=== PATIENT | female | born 1985 | race Caucasian/White ===

== ENCOUNTER → 2018-04-04 08:26 | Outpatient (POV) | payer OTHER, SELFPAY | PROVIDERS: Visit Provider Dermatology | DX: Z00.00 Encounter for general adult medical examination without abnormal findings (principal) ==

== ENCOUNTER → 2018-11-06 15:49 | Outpatient (CLI) | payer OTHER, SELFPAY ==
--- NOTE | 2018-11-06 15:54 | XR_ITS ---
XR foot RT min 3V HISTORY: ITS.REASON: RT FOOT PAIN ORDERING PHYSICIAN: Justice Rapp MD PATIENT AGE: 33 years COMPARISON: None FINDINGS: No fracture or dislocation. No lytic or blastic change. There is normal mineralization.. The joint spaces are well-preserved. No significant degenerative/arthritic changes. No erosive changes evident. The plantar arch is normal. There are no calcaneal spurs. IMPRESSION: Negative, no acute finding
== END ==
PROVIDERS: PCP Family Medicine; Visit Provider Family Medicine
DX: M79.671 Pain in right foot (principal)
CPT/HCPCS: 73630

== ENCOUNTER → 2023-01-04 10:22 | Outpatient (CLI) | payer BC, SELFPAY ==
--- NOTE | 2023-01-04 10:25 | XR_ITS ---
FINAL REPORT CLINICAL HISTORY: Foot pain FINDINGS: AP, oblique and lateral views of the right foot were obtained. There is no prior exam for comparison. There is no acute fracture or dislocation. The joint spaces are preserved. Soft tissues are normal. IMPRESSION: No acute osseous abnormality of the right foot. Reviewed, Interpreted and Dictated by Ami Goodman MD Transcribed by Andrey Gottlieb Authenticated and [facility]
== END ==
PROVIDERS: PCP Family Medicine; Visit Provider Nurse Practitioner Family
DX: M79.671 Pain in right foot (principal)
CPT/HCPCS: 73630

== ENCOUNTER 2023-12-29 09:43 | Outpatient (CLI) | payer OTHER, SELFPAY ==
--- NOTE | 2023-12-29 09:56 | XR_ITS ---
FINAL REPORT CLINICAL HISTORY: concern for fracture , coccyx only per doctor FINDINGS: Sacrum/coccyx Two views were obtained. There is no acute fracture or dislocation. The joint spaces appear normal. No soft tissue abnormality is identified. IUD is seen in the mid pelvis. IMPRESSION: No acute process. Reviewed, Interpreted and Dictated by Jac Joens III, MD Transcribed by Odalis Boucher Authenticated and . [facility]
[2023-12-29 10:13] LABS: Basophils % 0.6 % (0.1-2.0); Eosinophils # 0.1 K/mm3 (0.0-0.4); Eosinophils % 0.8 % (0.1-12.0); Hematocrit 40.6 % (37.0-47.0); Hemoglobin 13.4 g/dL (12.2-16.2); Lymphocytes # 1.6 K/mm3 (0.7-4.5); Lymphocytes % 23.1 % (10-50); Mean Corpuscular Hemoglobin 32.2 pg (27.0-31.2); Mean Corpuscular Volume 97.6 fl (81-99); Mean Platelet Volume 9.5 fl (7.4-10.4); Monocytes # 0.5 K/mm3 (0.1-1.0); Neutrophils # 4.7 K/mm3 (1.8-7.8); Neutrophils % 68.5 % (37.0-80.0); Platelet Count 236 K/mm3 (142-424); Red Blood Count 4.16 M/mm3 (4.20-5.40); Red Cell Distribution Width 14.1 % (11.5-17.5); White Blood Count 6.8 K/mm3 (4.8-10.8)
[2023-12-29 10:38] LABS: Alanine Aminotransferase 16 U/L (12-78); Albumin/Globulin Ratio 1.7 (1.1-1.8); Alkaline Phosphatase 66 U/L (38-126); Anion Gap 6.8 mEq/L (5-15); Aspartate Amino Transferase 23 U/L (14-36); Bilirubin,Total 0.5 mg/dl (0.2-1.3); Blood Urea Nitrogen 13 mg/dl (7-17); Calcium 9.3 mg/dl (8.4-10.2); Carbon Dioxide 30 mmol/L (22.0-30.0); Chloride 104 mmol/L (98-107); Chol/HDL Ratio 2.7 (1-3.5); Cholesterol 182 mg/dl (140-200); Estimated Glomerular Filt Rate 93 ml/min (>60); GFR (African American) 113 ML/MIN (>60); Globulin 2.3 g/dL (1.3-3.2); Glucose 89 mg/dl (74-100); HDL Cholesterol 67 mg/dl (40-60); Potassium 3.8 mmoL/L (3.5-5.1); Sodium 137 mmol/L (136-145); Total Protein,Serum 6.3 g/dl (6.3-8.2); Triglycerides 64 mg/dl (30-150); VLDL Cholesterol 13 mg/dL (0-40)
[2023-12-29 10:49] LABS: Direct LDL Cholesterol 86.11 mg/dL (100-129)
[2023-12-29 11:09] LABS: Thyroid Stimulating Hormone 1.47 uIU/mL (0.465-4.68)
== END 2023-12-29 23:59 | disposition home or self-care (01) ==
LOC: LAB 09:45
PROVIDERS: PCP Family Medicine; Visit Provider Obstetrics & Gynecology
DX: F43.10 Post-traumatic stress disorder, unspecified (principal); M53.3 Sacrococcygeal disorders, not elsewhere classified
CPT/HCPCS: 36415; 72220; 80050; 80053; 80061; 84443; 85025

== ENCOUNTER 2024-01-11 15:02 | Outpatient (CLI) | payer OTHER, SELFPAY ==
--- NOTE | 2024-01-11 15:08 | US_ITS ---
FINAL REPORT CLINICAL HISTORY: LEFT AXILLA/LYMPHADENOPATHY COMPARISON: None FINDINGS: Limited sonographic images were obtained of the left axilla at the region of palpable abnormality. There are scattered small lymph nodes identified, all normal size by imaging criteria. No mass or fluid collection identified. IMPRESSION: Normal-appearing lymph nodes. Reviewed, Interpreted and Dictated by Scar Hogan MD Transcribed by Khloe Galindo Authenticated and [facility]
== END 2024-01-11 23:59 | disposition home or self-care (01) ==
LOC: RAD 15:03
PROVIDERS: PCP Family Medicine; Visit Provider Physician Assistant
DX: R59.0 Localized enlarged lymph nodes (principal)
CPT/HCPCS: 76882

== ENCOUNTER 2024-04-02 10:33 | Outpatient (CLI) | payer OTHER, SELFPAY | END 2024-04-02 23:59 | disposition home or self-care (01) | LOC: LAB.DROPOF 04-03 10:33 | PROVIDERS: PCP Student in an Organized Health Care Education/Training Program; Visit Provider Student in an Organized Health Care Education/Training Program | DX: J32.9 Chronic sinusitis, unspecified (principal) | CPT/HCPCS: 87635 ==

== ENCOUNTER 2024-12-17 08:38 | Outpatient (CLI) | payer OTHER, SELFPAY ==
--- OUTSIDE RECORDS SUMMARY | 2024-01-06 09:30 | XMS_ITS ---
Author Organization [facility] Address [address] [facility] [address] [place] [id number] Care Team Providers Care Solar Project Engineer Name Role Phone uSzan Stallings Primary Care Provider [phone] Min Marcus Unavailable [phone] Ayleen Martinez Unavailable [phone] Allergies Allergen (clinical drug ingredient) Drug/Non Drug [...] [address] [place] [id number] 01/06/2024 Ayleen Martinez Poison galindo L23.7 and [...] test results, Reason: Progress Notes * GENOVEVA MCFARALNEB:[birth year] (39 yo F)Acc No.[id number]:01/06/2024 Progress Notes Patient: NABEEL JORDAN Provider: GURWINDER Tipton :1985 A ge:38 Y S ex:Female Date:01/06/2024 Address:[address] [place] [address] [address] [place] Pcp:Suzan Stallings Subjective: * [...] * Images: Billing Information: * Visit Code: 21097 Office Visit, Est Pt., Level 3. 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
--- NOTE | 2024-12-17 08:30 | MM_ITS ---
PROCEDURE INFORMATION: Exam: MG Bilateral Screening 3D Mammography Exam date and time: 12/17/2024 8:44 AM Age: 39 years old Clinical indication: Screening examination. TECHNIQUE: Imaging protocol: Bilateral Screening tomosynthesis and 2D mammography including computer-aided detection (CAD) when performed. COMPARISON: No relevant prior studies available. FINDINGS: MAMMOGRAPHY: Breast composition: There are scattered areas of fibroglandular density. Mass: None. Architectural distortion: None. Calcifications: No suspicious calcifications. Asymmetric density: None. Skin thickening: None. Axillary adenopathy: None. IMPRESSION: No mammographic evidence of malignancy. Annual screening is recommended unless otherwise clinically indicated. ASSESSMENT: BI-RADS Category 1: Negative.
--- OUTSIDE RECORDS SUMMARY | 2024-12-17 08:40 | XMS_ITS | Patient Health Record ---
Author Organization [facility] Address [address] [facility] [address] [place] [id number] Care Team Providers Care Equipment Service Lead Name Role Phone Suzan Stallings Primary Care Provider [phone] Min Marcus Unavailable [phone] Ayleen Martinez Unavailable [phone] Allergies Allergen (clinical drug ingredient) Drug/Non Drug Allergy documented on EMR Reaction Allergy Type Onset Date Status amoxicillin Amoxicillin Unknown Drug Allergy Act tien Substance with penicillin structure and antibacterial mechanism of action (substance) Penicillins Unknown Drug Allergy Active Results Component Value Reference Range Notes Ultrasound : Axilla, left Reviewed date:01/13/2024 02:09:10 PM Interpretation:Normal Performing Lab: Notes/Report: Normal Reason For Referral No Information Medications Medication SIG (Take, Route, Frequency, Duration) Notes Start Date End Date Status SUMAtriptan Succinate 25 MG 1 tab(s) orally once Acti ve Triamcinolone Acetonide 0.5 % 1 application Externally Twice a day 01/06/2024 Active DULoxetine HCl 60 MG 1 cap(s) orally once a day; Duration: 15 day(s) Active Medrol 4 MG as directed orally daily; Duration: 6 days 01/18/2022 Not-Taking Saxenda 18 MG/3ML as directed subcutaneously once a day 03/03/2020 Not-Taking Zepbound 5 MG/0.5ML 0.5 mL Subcutaneous; Duration: 30 day(s) Active Valtrex 500 MG 1 tab(s) orally 2 tabs initially, then 1 tab QD x 5 11/24/2020 Active Triamcinolone Acetonide 0.1 % 1 marlo applied topically 3 times a day 09/30/2021 Not-Taking hydrOXYzine HCl 25 MG 1 tab(s) orally 4 times a day, prn 09/30/2021 Not-Taking Acyclovir 5 % 1 marlo applied topically every 3 hours; Duration: 7 day(s) 01/18/2022 Not-Taking VALTREX 1000 MG 1 P.O. BID *Please review for potential replacement for e-prescription and drug interaction check* 01/18/2022 Active Immunizations Vaccine Route Administration Date Status Comme nts COVID 19 Cecilia Unknown 08/27/2020 Administered Fluzone Quad (6months&older) IM Intramuscular 03/29/2015 Administered Fluzone Quad (6months&older) IM Intramuscular 05/08/2016 Administered Fluzone Quad (6months&older) IM Intramuscular 03/22/2017 Administered Fluzone Quad (6months&older) IM Intramuscular 04/09/2019 Administered Fluzone Quad (6months&older) IM Intramuscular 04/18/2020 Administered H1N1 flu vaccine IM Intramuscular 05/12/2009 Administered Tetanus Tdap-Adacel (over 7yrs) IM Intramuscular 11/24/2020 Administered xFlu shot- 6months-36 months of gun-FQTB-DOAE-trivalent IM Intramuscular 05/03/2014 Administered xFlu shot- 6months-36 months of phv-LMZY-EGMQ-trivalent Unknown 04/13/2018 Administered xFlu shot-36 months and older IM Intramuscular 05/26/2007 Administered xFluzone (6mos and older)-trivalent IM Intramuscular 04/30/2013 Administered xFluzone Intradermal (18-64yrs)-trivalent ID Intradermal 02/23/2012 Administered xGardasil IM Intramuscular 09/08/2006 Administered xGardasil IM Intramuscular 11/04/2006 Administered xGardasil IM Intramuscular 03/11/2007 Administered Problems Problem Type SNOMED Code ICD Code Onset Dates Problem Status W/U Status Risk Notes Problem Depressive disorder (14991439) Depressive disorder (F32.9) Active confirmed Problem Panic disorder (049408481) Panic attacks (F41.0) Active confirmed Problem Upper respiratory infection (45626183) Upper respiratory tract infection, unspecified type (J06.9) Active confirmed Problem Acute sinusitis (63838851) Acute sinusitis, recurrence not specified, unspecified location (J01.90) Active confirmed Problem Migraine variant with headache (disorder) (712803997) Migraine headache (G43.909) Active confirmed Problem Anxiety depression (114112258) Anxiety with depression (F41.8) Active confirmed Problem Obesity (328091461) Non morbid obesity (E66.9) Active confirmed Vital Signs Heart Rate 79 /min 01/06/2024 Blood pressure diastolic 82 mm Hg 01/06/2024 Height 71 in 01/06/2024 Blood pressure systolic 112 mm Hg 01/06/2024 Weight 203.6 lbs 01/06/2024 BMI 28.39 kg/m2 01/06/2024 Encounters Encounter Location Date Provider Diagnosis [facility] [address] [place], [place] [phone] 01/06/2024 Ayleen Crowdy Poison galindo L23.7 and Axillary lymphadenopathy R59.0 Assessments Encounter Date Diagnosis (ICD Code) Assessment Notes Treatment Notes Treatment Clinical Notes Section Notes 01/06/2024 Poison galindo (ICD-10 - L23.7) 01/06/2024 Axillary lymphadenopathy (ICD-10 - R59.0) Plan Of Treatment No Information Insurance Providers Payer Name Payer Address Payer Phone Subscriber Number Group Number Insured Name Patient Relationship to Insured Coverage Start Date Coverage End Date [employer] [facility] [id number] [place], [place] [id number] NABEEL MCFARLANE Self - patient is the insured [facility] [id number] [place], [place] [id number] NABEEL MCFARLANE Self - patient is the insured Medications Administered Medication Instructions Date of Administration Dosage Notes celestone 03/22/2017 1.5 mL Dexamethasone 02/20/2020 1 mL Medical (General) History Surgical History Surgery Date(Month/Year) cholecystectomy 06/2009 appendectomy 06/2009
--- OUTSIDE RECORDS SUMMARY | 2024-12-17 08:41 | XMS_ITS | Data Portability ---
Author Organization [facility] telehealth Address [address] [place] [address] Assessment Encounter Date Assessment Date Assessment LastModified by Organization Details LastModified Time 11/26/2022 11/26/2022 37 y/o here today for annual exam. 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 Has a mirena IUD which is not due to be changed yet but she will verify with her card and let us know. Would like labwork drawn--c/o fatigue. Would possibly be interested in testosterone/ DHEA. Happy with cymbalta 60mg that she has been on for over a year now and is requesting we refill this for her. Also requesting refill for imitrex which she likes to have on hand but very rarely needs to use. Pap today. Denies dysuria or hematochezia. RTC in one year or PRN. WDWN fe in NAD. ROS neg X HPI. Meds reviewed and accurate. [email or web address] Not available 11/26/2022 14:38:06 Plan of Treatment Reminders Order Date Submit Date Provider Last Modified By Organization Details Last Modified Time Details Appointments None recorded. Lab estradiol, serum 2022 023 [facility] ([facility]), [address] [place] [address], [address], 03:45:35 dhea-sulfat e, serum 2022 023 [facility] ([facility]), [address] [place] [address], [address], 3 03:45:37 testosteron e, total, serum 2022 023 [place] [facility] ([facility]), [address] [place] [address], [address], 3 03:45:34 lh + FSH, serum 2022 023 [place] [facility] ([facility]), [address] [place] [address], [address], 3 03:45:32 vitamin D, 25-hydroxy, total, serum 2022 023 [place] [facility] ([facility]), [address] [place] [address], [address], 3 03:45:34 TSH, serum or plasma 2022 023 [facility] ([facility]), [address] [place] [address], [address], 3 17:04:04 vitamin B12, serum 2022 023 [place] [facility] ([facility]), [address] [place] [address], [address], 3 03:45:35 pap, LB 2022 023 [email or web address] [facility] ([facility]), [address] [place] [address], [address], 3 13:35:54 pap, LB 2022 023 [email or web address] [facility] ([facility]), [address] [place], [address], 3 17:04:03 pap, LB 2022 023 [facility] ([facility]), [address] [place], [address], 3 03:44:10 fecal occult blood, stool 2022 023 HA[facility] Tijerina MD, [address], [place], [address], 3 09:27:35 CBC w/ auto diff 2022 023 [facility]), [address] [place] [address], [address], 3 03:45:33 TSH, serum or plasma 2022 023 [facility] ([facility]), [address] [place] [address], [address], 3 03:45:36 HbA1c (hemoglobin A1c), blood 2022 023 [facility] ([facility]), [address] [place] [address], [address], 3 03:45:36 CMP, serum or plasma 2022 023 [facility] ([facility]), [address] [place] [address], [address], 3 03:45:33 Referral None recorded. Procedures None recorded. Surgeries None recorded. Imaging None recorded. Medication Orders duloxetine 60 mg capsule,del ayed release 2022 023 [facility] [place], [address], 3 15:13:51 sumatriptan 100 mg tablet 2022 023 [facility] [address] [facility] [place], [address], 3 15:13:57 Patient TargetsNo targets recorded. Patient InstructionsNo instructions recorded. Reason for Referral None Reported. Results Created Date Observation Date Name Description Value Unit Range Abnormal Flag Note LastModifiedBy Organization Detail LastModifiedTime 11/27/19 23 11/29/2022 PAP TEST THIN PREP Pap test thin prep Negati ve for Intrae pithel ial Lesion or Malign vadim normal ACCES VALERI #: [id number] Sour e: Cervi michael/E ndoce rvica l LMP: unkno wn Date Taken : 11/26 Speci men Type: ThinP rep Vial Date Repor adele: 2022 Clini michael Data: Cytot ech: Colt Villanueva tt, CT( CP) Date Repor adele: 2022 Speci men Adequ acy: Satis facto ry for evalu ation Endoc ervic al/tr ansfo rmati on zone compo nent prese nt Gener al Categ oriza tion: NEGAT JANKI FOR INTRA EPITH ELIAL LESIO N OR MALIG CRISTAL Comme nts/R ecomm endat ions: Infla mmati on The follo wing tests have been order ed as reque sted and a separ ate repor t will be issue d: HPV High Risk Scree n (TMA) This speci men has been thee zed by the ThinP rep Imagi ng Syste m, an inter activ e compu ter syste m which vipin ts the lab in the scree vladislav of ThinP rep Pap Test slide s. Follo wing imagi ng, the slide was revie wed by a Cytot echno logis t and/o r Patho logis t. End of Repor t Techn ical servi juanito provi ded by Assoc i[facility] logis ts, [facility], d/b/a Sujatha charles, [address] [place] [address] Tello Her MD, Labor CFX BAT[facility]. Case revie wed and diagn osis rende red at [facility] iated Patho logis [employer] [facility], d/b/a [facility], [address] [facility] [address] [place] [address] Tello Her MD, [facility] CONFI DENTI AL Not Available [facility] ([facility]) [address] [facility], [place], [address], 11/29/2022 19:13:16 11/27/19 23 11/27/2022 HPV HIGH RISK SCREE N (TMA) HPV high risk NOT DETECT ED normal The human papil lomav irus (HPV) High Risk Scree n is an FDA-a pprov ed in-vi tro ampli fied nucle ic acid test for the quali tativ e detec tion of E6/E7 viral mRNA. [facility] melvin sharma lated with patie nt prese ntati on, histo ry, cervi michael cytol ogy and other clini michael and labor atory findi ngs. See https ://[employer]/s itflory/ anusha lt/fi les/2 018-0 3/AW- 73660 _002_ 01.pd f for alma gatesr sunil n. Test perfo rmed by [facility] iated Patho logis [employer] [facility], d/b/a Sujatha bai, [address] [facility] [address], [place] [address] , Shawna Chaudhry ra DO, Labor atorSupponor [facility] tor. Not Available [facility] ([facility]) [address] [facility] [address], [place], [address], 11/29/2022 19:13:17 11/27/19 23 11/27/2022 FSH AND LH luteinizing hormone 1.50 mIU/m L LH Refer ence Range Men: 1.7 - 8.6 Women : Folli cular phase 2.4 - 12.6 Ovula tion phase 14.0 - 95.6 Lutea l phase 1.0 - 11.4 Postm enopa use 7.7 - 58.5 Not Available [facility] ([facility]) [address] [place] [address] [address], [place], [address], 12/01/2022 03:45:32 11/27/19 23 11/27/2022 FSH AND LH FSH 2.69 mIU/m L FSH Refer ence Range Men: 1.5 - 12.4 Women : Folli cular phase 3.5 - 12.5 Ovula tion phase 4.7 - 21.5 Lutea l phase 1.7 - 7.7 Postm enopa use 25.8 - 134.8 Not Available [facility] ([facility]) [address] [place] [address] [address], [place], [address], 12/01/2022 03:45:32 11/27/19 23 11/27/2022 CBC WITH PLATE LET AND DIFFE RENTI AL WBC 6.2 K/uL 3.8-11 .5 Not Available [facility] ([facility]) [address] [place] [address] [address], [place], [address], 12/01/2022 03:45:33 11/27/19 23 11/27/2022 CBC WITH PLATE LET AND DIFFE RENTI AL red blood cell count (RBC) 4.40 M/mm3 3.60-5 .30 Not Available [facility] ([facility]) [address] [place] [address] [address], [place], [address], 12/01/2022 03:45:33 11/27/19 23 11/27/2022 CBC WITH PLATE LET AND DIFFE RENTI AL hemoglobin (HGB) 13.7 gm/dL 11.5-1 5.5 Not Available [facility] ([facility]) [address] [place] [address] [address], [place], [address], 12/01/2022 03:45:33 11/27/19 23 11/27/2022 CBC WITH PLATE LET AND DIFFE RENTI AL hematocrit (HCT) 40.9 % 35.2-4 6.4 Not Available [facility] ([facility]) [address] [place] [address] [address], [place], [address], 12/01/2022 03:45:33 11/27/19 23 11/27/2022 CBC WITH PLATE LET AND DIFFE RENTI AL MCV 93.0 fL 79.0-9 9.0 Not Available [facility] ([facility]) [address] [place] [address] [address], [place], [address], 12/01/2022 03:45:33 11/27/19 23 11/27/2022 CBC WITH PLATE LET AND DIFFE RENTI AL MCH 31.1 pg 26.9-3 5.0 Not Available [facility] ([facility]) [address] [place] [address] [address], [place], [address], 12/01/2022 03:45:33 11/27/19 23 11/27/2022 CBC WITH PLATE LET AND DIFFE RENTI AL MCHC 33.5 g/dL 30.4-3 4.8 Not Available [facility] ([facility]) [address] [place] [address] [address], [place], [address], 12/01/2022 03:45:33 11/27/19 23 11/27/2022 CBC WITH PLATE LET AND DIFFE RENTI AL RDW 43.6 fL 38.6-5 3.8 Not Available [facility] ([facility]) [address] [place] [address] [address], [place], [address], 12/01/2022 03:45:33 11/27/19 23 11/27/2022 CBC WITH PLATE LET AND DIFFE RENTI AL platelet count 177 K/cum m 137-39 7 Not Available [facility] ([facility]) [address] [place] [address] [address], [place], [address], 12/01/2022 03:45:33 11/27/19 23 11/27/2022 CBC WITH PLATE LET AND DIFFE RENTI AL neutrophils automated 61.7 % 41.0-7 7.0 Not Available [facility] ([facility]) [address] [place] [address] [address], [place], [address], 12/01/2022 03:45:33 11/27/19 23 11/27/2022 CBC WITH PLATE LET AND DIFFE RENTI AL lymphocytes automated 27.6 % 14.0-4 8.0 Not Available [facility] ([facility]) [address] [place] [address] [address], [place], [address], 12/01/2022 03:45:33 11/27/19 23 11/27/2022 CBC WITH PLATE LET AND DIFFE RENTI AL monocytes automated 8.7 % 4.0-13 .0 Not Available [facility] ([facility]) [address] [place] [address] [address], [place], [address], 12/01/2022 03:45:33 11/27/19 23 11/27/2022 CBC WITH PLATE LET AND DIFFE RENTI AL eosinophils automated 1.0 % 0.0-8. 0 Not Available [facility] ([facility]) [address] [place] [address] [address], [place], [address], 12/01/2022 03:45:33 11/27/19 23 11/27/2022 CBC WITH PLATE LET AND DIFFE RENTI AL basophils automated 0.8 % 0.0-1. 5 Not Available [facility] ([facility]) [address] [place] [address] [address], [place], [address], 12/01/2022 03:45:33 11/27/19 23 11/27/2022 CBC WITH PLATE LET AND DIFFE SYDNIETI AL immature granulocyte automated 0.2 % 0.0-1. 0 Not Available [facility] ([facility]) [address] [place] [address] [address], [place], [address], 12/01/2022 03:45:33 11/27/19 23 11/27/2022 COMPR EHENS JANKI METAB OLIC PANEL (CMP) sodium 140 mEq/L 135-14 5 Not Available [facility] ([facility]) [address] [place] [address] [address], [place], [address], 12/01/2022 03:45:33 11/27/19 23 11/27/2022 COMPR EHENS JANKI METAB OLIC PANEL (CMP) potassium 4.3 mEq/L 3.5-5. 3 Not Available [facility] ([facility]) [address] [place] [address] [address], [place], [address], 12/01/2022 03:45:33 11/27/19 23 11/27/2022 COMPR EHENS JANKI METAB OLIC PANEL (CMP) chloride 104 mEq/L 97-108 Not Available [facility] ([facility]) [address] [place] [address] [address], [place], [address], 12/01/2022 03:45:33 11/27/19 23 11/27/2022 COMPR EHENS JANKI METAB OLIC PANEL (CMP) CO2 25 mEq/L 22-32 Not Available [facility] ([facility]) [address] [place] [address] [address], [place], [address], 12/01/2022 03:45:33 11/27/19 23 11/27/2022 COMPR EHENS JANKI METAB OLIC PANEL (CMP) glucose 94 mg/dL 65-99 Not Available [facility] ([facility]) [address] [place] [address] [address], [place], [address], 12/01/2022 03:45:33 11/27/19 23 11/27/2022 COMPR EHENS JANKI METAB OLIC PANEL (CMP) BUN 10 mg/dL 6-20 Not Available [facility] ([facility]) [address] [place] [address] [address], [place], [address], 12/01/2022 03:45:33 11/27/19 23 11/27/2022 COMPR EHENS JANKI METAB OLIC PANEL (CMP) creatinine 0.79 mg/dL 0.50-1 .00 Not Available [facility] ([facility]) [address] [place] [address] [address], [place], [address], 12/01/2022 03:45:33 11/27/19 23 11/27/2022 COMPR EHENS JANKI METAB OLIC PANEL (CMP) calcium 9.6 mg/dL 8.6-10 .4 Not Available [facility] ([facility]) [address] [place] [address] [address], [place], [address], 12/01/2022 03:45:33 11/27/19 23 11/27/2022 COMPR EHENS JANKI METAB OLIC PANEL (CMP) protein 6.7 g/dL 6.0-8. 3 Not Available [facility] ([facility]) [address] [place] [address] [address], [place], [address], 12/01/2022 03:45:33 11/27/19 23 11/27/2022 COMPR EHENS JANKI METAB OLIC PANEL (CMP) albumin 4.5 g/dL 3.5-5. 3 Not Available [facility] ([facility]) [address] [place] [address] [address], [place], [address], 12/01/2022 03:45:33 11/27/19 23 11/27/2022 COMPR EHENS JANKI METAB OLIC PANEL (CMP) alkaline phosphatase 80 IU/L 35-121 Not Available [facility] ([facility]) [address] [place] [address] [address], [place], [address], 12/01/2022 03:45:33 11/27/19 23 11/27/2022 COMPR EHENS JANKI METAB OLIC PANEL (CMP) ALT (SGPT) 12 IU/L <5-47 Not Available [facility] ([facility]) [address] [place] [address] [address], [place], [address], 12/01/2022 03:45:33 11/27/19 23 11/27/2022 COMPR EHENS JANKI METAB OLIC PANEL (CMP) AST (SGOT) 15 IU/L <5-40 Not Available [facility] ([facility]) [address] [place] [address] [address], [place], [address], 12/01/2022 03:45:33 11/27/19 23 11/27/2022 COMPR EHENS JANKI METAB OLIC PANEL (CMP) bilirubin, total 0.3 mg/dL <0.2-1 .2 Not Available [facility] ([facility]) [address] [place] [address] [address], [place], [address], 12/01/2022 03:45:33 11/27/19 23 11/27/2022 COMPR EHENS JANKI METAB OLIC PANEL (CMP) A/G ratio 2.0 mg/dL 1.1-2. 5 Not Available [facility] ([facility]) [address] [place] [address] [address], [place], [address], 12/01/2022 03:45:33 11/27/19 23 11/27/2022 COMPR EHENS JANKI METAB OLIC PANEL (CMP) estimated GFR (black) 110 mL/mi n/1.7 3m2 >59 Not Available [facility] ([facility]) [address] [place] [address] [address], [place], [address], 12/01/2022 03:45:33 11/27/19 23 11/27/2022 COMPR EHENS JANKI METAB OLIC PANEL (CMP) estimated GFR (other) 95 mL/mi n/1.7 3m2 >59 GFR Categ ories in Chron ic Kidne y Disea se (CKD) GFR Categ ory GFR (mL/m in/1. 73 sq. meter s) Inter preta tion G1 90 or great er Genie l or high* G2 60-89 Mild decre ase* G3a 45-59 Mild to moder ate decre ase G3b 30-44 Moder ate to sever e decre ase G4 15-29 Sever e decre ase G5 14 or less Kidne y failu re *In the absen ce of kidne y damag e, neith er GFR categ ory G1 or G2 fulfi ll the crite prudencio for CKD (Kidn ey Int Suppl 2013; 3.1-1 50) The CKD-E PI calcu latio n is inten ded for use in patie nts 18 years of age and older . Decre ased calcu latio n accur acy may be seen in patie nts takin g medic ation s that affec t renal excre tion, or in those patie nts with extre mes in muscl e mass or diet. Not Available [facility] ([facility]) [address], [place], [address], 12/01/2022 03:45:33 11/27/1911/27/2022 VITAM IN D 25-HY DROXY vitamin D 25-hydroxy 27.8 NG/mL 30.0-1 00.0 low Inter preta tion of Vitam in D 25 OH: < 20 ng/mL - Defic iency 20 - 29 ng/mL - Insuf ficie ncy 30 - 100 ng/mL - Suffi cienc y > 100 ng/mL - Super -ther apeut ic- toxic ity may occur above this level . Clini michael corre latio n requi red. Not Available [facility] ([facility]) [address], [place], [address], 12/01/2022 03:45:34 11/27/1911/27/2022 TESTO STERO NE TOTAL testosterone total SEE BELOW NG/dL 8.00-4 8.00 The resul t is outsi de of the repor table range for this metho dolog y. Pleas e refer to Testo stero ne , Total by LC/MS for the resul t. Not Available [facility] ([facility]) [address] [place] [address] [address], [place], [address], 12/01/2022 03:45:34 11/27/1912/01/2022 TESTO STERO NE, TOTAL BY LC/MS testosterone , total by lc/MS 12.3 NG/dL 5.0-55 .0 Preme nopau jodee 5-55 ng/dL (Grea ter than 18 years ) Postm enopa usal 6-30 ng/dL This test was devel oped and its perfo rmanc e lisa cteri stics were deter mined by [facility] michael labor atori es. It has not been clear ed or appro cl by the FDA. The labor atory is regul ated under CLIA as quali fied to perfo rm high- compl exity testi ng. This test is used for clini michael purpo ses and shoul d not be regar ded as inves tigat ional or for resea rch. Not Available [facility] ([facility]) [address] [place] [address] [address], [place], [address], 12/01/2022 03:45:35 11/27/19 23 11/27/2022 ESTRA DIOL estradiol 67 pg/mL Estra diol Refer ence Range Healt hy women Folli cular phase 12.4 - 233 Ovula tion phase 41.0 - 398 Lutea l phase 22.3 - 341 Postm enopa use <5 - 138 Healt hy pregn ant women 1st trime ster 154 - 3243 2nd trime ster 1561 - 53490 3rd trime ster 8525 - >3000 0 Not Available [facility] ([facility]) [address], [place], [address], 12/01/2022 03:45:35 11/27/19 23 11/27/2022 VITAM IN B12 vitamin B12 343 pg/mL 232-12 45 Not Available [facility] ([facility]) [address] [place] [address], [place], [address], 12/01/2022 03:45:35 11/27/19 23 11/27/2022 HEMOG LOBIN A1C hemoglobin A1C 5.3 % <5.7 The follo wing HbA1c range s recom wiliam d by the Ameri can Diabe mario Assoc iatio n (ADA) may be used as an aid in the diagn osis of diabe mario melli tus. HA1c Sugge sted Diagn osis >=6.5 % Diabe tic 5.7% - 6.4% Pre-D iabet ic <5.7% Non-D iabet ic Not Available [facility] ([facility]) [address], [place], [address], 12/01/2022 03:45:36 11/27/19 23 11/27/2022 HEMOG LOBIN A1C estimated average glucose 105 mg/dL Crowell ge Gluco se is calcu lated using the equat ion AG = (28.7 x HgbA1 c) - 46.7 based on the guide lines estab lishe d by the ADA. Not Available [facility] ([facility]) [address], [place], [address], 12/01/2022 03:45:36 11/27/19 23 11/27/2022 TSH TSH 1.70 mU/L 0.43-5 .25 Not Available [facility] ([facility]) [address], [place], [address], 12/01/2022 03:45:36 11/27/19 23 11/27/2022 DHEA- SULFA TE DHEA-sulfate 64 ug/dL 61-337 Not Available [facility] ([facility]) [address], [place], [address], 12/01/2022 03:45:37 Result Notes None recorded. Problems Name Problem SNOMED Code Status Onset Date Resolution Date Notes Provider Name and Address Organization Details Recorded Time Mixed anxiety and depressive disorder 360603116 Active 023 [address], [place], [address], [facility] 3 14:09:03 Migraine 26412716 Active 023 PABLO [address], [place], [address], [facility] 3 14:13:07 Fatigue 81109447 Active [address], [place], [address], [facility] 3 14:30:54 Problem Notes None recorded. Procedures Surgical History Date Name Laterality Status Provider Name and Address Organization Details Recorded Time 08/19/19 22 Date of Last Pap Smear completed [facility] 11/26/2022 13:30:53 Appendectomy completed [facility] 11/26/2022 13:34:04 tonsillectomy completed [facility] 11/26/2022 13:34:27 Cholecyst[facility] completed [facility] 11/26/2022 13:34:48 Imaging Results None recorded. Procedure Notes None recorded. Medical Equipment None Reported. Allergies Allergen ID Allergen Name Allergen Category Reaction Reaction Severity Criticality Documentation Date Start Date Code Code System Note Provider Name and Address Organization Details Recorded Time 3503 Product containin g penicilli n (product) medicatio n hives Not available Not available 11/26/2022 22975 8001 SNOMED Rosy fajardo, [facility] - [facility] 13:28:49 Medications Name Sig Start Date Stop Date Status Note LastModified by Organization Details LastModified Time triamcinolo ne acetonide 0.5 % topical cream APPLY TOPICALLY TO THE AFFECTED AREA TWICE DAILY active Not Available Not Available No t Available azithromyci n 250 mg tablet TAKE 2 TABLETS BY MOUTH ON DAY 1, AND THEN TAKE 1 TABLET BY MOUTH ONCE A DAY ON DAY 2 THROUGH DAY 5 11/26 completed Not Available Not Available Not Available fluconazole 150 mg tablet TAKE 1 TABLET BY MOUTH EVERY 3 DAYS FOR 2 DOSES. MAY REPEAT SECOND DOSE 72 HOURS AFTER FOR 1 DOSE IF SYMPTOMS PERSIST active Not Available Not Available No t Available valacyclovi r 1 gram tablet TAKE 1 TABLET BY MOUTH TWICE DAILY 11/26 completed Not Available Not Available Not Available sumatriptan 100 mg tablet TAKE 1 TABLET BY MOUTH NEEDED DIRECTED . DO NOT EXCEED 2 PER 24 HOURS active Not Available Not Available No t Available sumatriptan 25 mg tablet TAKE 1 TABLET BY MOUTH A ONE TIME DOSE 11/26 completed Not Available Not Available Not Available triamcinolo ne acetonide 0.1 % topical cream active Not Available Not Available Not Available doxycycline monohydrate 100 mg capsule active Not Available Not Available Not Available dextroamphe tamine-amph etamine ER 10 mg 24hr capsule,ext end release TAKE 1 CAPSULE BY MOUTH ONCE DAILY active Not Available Not Available No t Available mupirocin 2 % topical ointment APPLY TOPICALLY TO THE AFFECTED AREA TWICE DAILY active Not Available Not Available No t Available methylpredn isolone 4 mg tablets in a dose pack TAKE BY MOUTH DIRECTED ON INSIDE OF PACKAGE active Not Available Not Available No t Available doxycycline hyclate 100 mg tablet TAKE 1 TABLET BY MOUTH TWICE DAILY active Not Available Not Available No t Available duloxetine 60 mg capsule,del ayed release TAKE 1 CAPSULE BY MOUTH DAILY active Not Available Not Available No t Available Allergy Medication active Not Available Not Available N ot Available semaglutide (weight loss) active Not Available Not Available Not Available Vitals Date Recorded Body height Body mass index (BMI) Body weight Systolic blood pressure Diastolic blood pressure Provider Name and Address Organization Details Last Updated DateTime 11/26/2022 180.34 cm 33.8 kg/m2 889338.5 1 g 110 mm[Hg] 80 mm[Hg] [facility] 13:49:24 Social History Question Answer Notes LastModified by Organizat [employer] Details LastModified Time Tobacco Smoking Status Never Smoker [facility] 11/26/2022 13:33:49 Do You Use Protection During Sex? No [email or web address] Information not available 11/26/2022 What Is Your Relationship Status? [email or web address] Information not available 11/26/2022 Are You Sexually Active? Yes [email or web address] Information not available 11/26/2022 Sex: Female Functional Status Question Answer Note LastModified by Organizat ion Details LastModified Time Do you use any illicit or recreational drugs? No [email or web address] Information not available 11/26/2022 Do you or have you ever used any other forms of tobacco or nicotine? No [email or web address] Information not available 11/26/2022 What is your level of alcohol consumption? Occasional [email or web address] Information not available 11/26/2022 Mental Status None recorded. Family History Relationship Description Onset Age of this Age Resolved Age Notes LastModified by Organization Details LastModified Time Father No current problems or disability [email or web address] Not available 11/26 13:31:15 Mother No current problems or disability [email or web address] Not available 11/26 13:31:15 Mother Diabetes mellitus Moms whole family [email or web address] Not available 11/26/2022 13:32:10 Medical History No medical history recorded. Gynecological History Statement/Question Response Date of Last Pap Smear 08/18/2021 Age at Menarche 14 Hormone Replacement Therapy N Are your periods regular? N Obstetrics History GPAL:G 3 P 2 0 1 0 Type Value Full Term 2 Spontaneous 1 Total 3 Past Encounters Encounter ID Performer Location Encounter Start Date Encounter Closed Date Diagnosis/Indication Diagnosis SNOMED-CT Code Diagnosis ICD10 Code Diagnosis Note [id number] PABLO Coronel MD [address] [place] [address] 11/26/2022 13:33:37 11/30/2022 15:52:46 Routine gynecologic examination done 2059545904 9101 Z01.419 Mixed anxi ety and depressive disorder 277373899 F41.8 Migraine 36681192 G43.90 9 Fatigue 76749700 R53.83 Hormone re placement therapy 694031916 Z79.890 Gynecologi michael examination abnormal 2214421942 31694 Z01.411 [id number] PABLO Landry MD [address] [place] [address] 12/06/2022 11:50:43 12/06/2022 15:29:12 Health Concerns Section Related Observation LastModified by Organization Detai ls LastModified Time None Recorded Concern Status LastModified by Organization Details LastModified Time None Recorded Advance Directives Directive None Recorded Payers Insurance Date Sequence Insurance Name Policy Number Policy Vargas Covered Member ID Vargas Member ID Guarantor Name 02/13/2024 1 [employer] (POS) [id number] Juanita John [id number] OBGyn Episode No OBEpisode recorded.
== END 2024-12-17 23:59 | disposition home or self-care (01) ==
LOC: RAD 08:39
PROVIDERS: PCP Family Medicine; Visit Provider Obstetrics & Gynecology
DX: Z12.31 Encounter for screening mammogram for malignant neoplasm of breast (principal); R92.323 Mammographic fibroglandular density, bilateral breasts
CPT/HCPCS: 77063; 77067

== ENCOUNTER 2024-12-18 11:39 | Emergency (ER) | payer MEDICAID, SELFPAY ==
--- OUTSIDE RECORDS SUMMARY | 2024-01-06 09:30 | XMS_ITS ---
Author Organization [facility] Address [address] [facility] [address] [place] [id number] Care Team Providers Care Secretary Of State Name Role Phone Suzan Stallings Primary Care Provider [phone] Min Marcus Unavailable [phone] Ayleen Martinez Unavailable [phone] Allergies Allergen (clinical drug ingredient) Drug/Non Drug Allergy documented on EMR Reaction Allergy Type Onset Date Status amoxicillin Amoxicillin Unknown Drug Allergy Act tien Substance with penicillin structure and antibacterial mechanism of action (substance) Penicillins Unknown Drug Allergy Active Results Component Value Reference Range Notes Ultrasound : Axilla, left Reviewed date:01/13/2024 02:09:10 PM Interpretation:Normal Performing Lab: Notes/Report: Normal REASON FOR VISIT mammogram Medications Medication SIG (Take, Route, Frequency, Duration) Notes Start Date End Date Status Triamcinolone Acetonide 0.5 % 1 application Externally Twice a day 01/06/2024 Active DULoxetine HCl 60 MG 1 cap(s) orally once a day; Duration: 15 day(s) Active Medrol 4 MG as directed orally daily; Duration: 6 days 01/18/2022 Not-Taking Saxenda 18 MG/3ML as directed subcutaneously once a day 03/03/2020 Not-Taking SUMAtriptan Succinate 25 MG 1 tab(s) orally once Acti ve Triamcinolone Acetonide 0.1 % 1 marlo applied topically 3 times a day 09/30/2021 Not-Taking hydrOXYzine HCl 25 MG 1 tab(s) orally 4 times a day, prn 09/30/2021 Not-Taking Acyclovir 5 % 1 marlo applied topically every 3 hours; Duration: 7 day(s) 01/18/2022 Not-Taking VALTREX 1000 MG 1 P.O. BID *Please review for potential replacement for e-prescription and drug interaction check* 01/18/2022 Active Zepbound 5 MG/0.5ML 0.5 mL Subcutaneous; Duration: 30 day(s) Active Valtrex 500 MG 1 tab(s) orally 2 tabs initially, then 1 tab QD x 5 11/24/2020 Active Vital Signs Blood pressure systolic 112 mm Hg 01/06/20 24 Blood pressure diastolic 82 mm Hg 024 Heart Rate 79 /min 01/06/2024 Height 71 in 01/06/2024 Weight 203.6 lbs 01/06/2024 BMI 28.39 kg/m2 01/06/2024 Encounters Encounter Location Date Provider Diagnosis [facility] [address] [place] [id number] 01/06/2024 Ayleen Martinez Poison galindo L23.7 and Axillary lymphadenopathy R59.0 Assessments Encounter Date Diagnosis (ICD Code) Assessment Notes Treatment Notes Treatment Clinical Notes Section Notes 01/06/2024 Poison galindo (ICD-10 - L23.7) 01/06/2024 Axillary lymphadenopathy (ICD-10 - R59.0) Plan Of Treatment Medication Medication Name Sig Start Date Stop Date Notes Triamcinolone Acetonide 0.5 % 1 applicat ion Externally Twice a day 01/06/2024 Next Appt Details Follow Up: via phone to repo rt test results, Reason: Progress Notes * GENOVEVA MCFARLANEB:[birth year] (39 yo F)Acc No.[id number]:01/06/2024 Progress Notes Patient: NABEEL JORDAN Provider: GURWINDER Tipton :1985 A ge:38 Y S ex:Female Date:01/06/2024 Address:[address] [place] [address] [address] [id number] Pcp:Suzan Stallings Subjective: * Chief Complaints: * 1 . Mammogram. * HPI: G YN: 38 year old female presents with c/o breast complaints P t presents today with c/o knot in the armpit on the left side. Pt sts that she is concerned about it. Pt sts that it is a little sore but that could be because she keeps touching it. D ermatology: c/o rash P t c/o rash on her thigh that may be poison galindo but she is unsure. * ROS: C ARDIOLOGY: no D izziness. n o C hest pain. G ASTROENTEROLOGY: no N ausea. n o V omiting. n o D iarrhea.? U ROLOGY: no D ifficulty urinating. n o B lood in urine. n o F requent urination. * Medical History: M edical History Verified. * Surgical History: c holecystectomy 06/2009, appendectomy 06/2009. * Family History: F ather: alive. M other: alive. P aternal Grand Father: . P aternal Grand Mother: . M aternal Grand Father: . M aternal Grand Mother: . 1 brother(s) . 1 son(s) . . * Social History: C URRENT TOBACCO USE S moking Status: Patient does NOT smoke. C affeine: yes, frequency:DAILY. Exercise: no. Home smoke detector use: yes. Marital Status: Single. New since last visit: none. Occupation: YES. Past smoking status: no, Smoking status: Does not smoke. Occup. exposure: none. Recreational drug use: no. Alcohol: socially, Type: , Frequency: ,Years: , Determination:. Sexually active: yes. Travel ouside [place]: no. * Medications: T aking Zepbound 5 MG/0.5ML Solution Auto-injector 0.5 mL Subcutaneous , Taking Valtrex 500 MG Tablet 1 tab(s) orally 2 tabs initially, then 1 tab QD x 5 , Taking VALTREX 1000 MG 1 P.O. BID , Notes to Pharmacist: *Please review for potential replacement for e-prescription and drug interaction check*, Taking SUMAtriptan Succinate 25 MG Tablet 1 tab(s) orally once , Taking DULoxetine HCl 60 MG Capsule Delayed Release Particles 1 cap(s) orally once a day , Not-Taking Triamcinolone Acetonide 0.1 % Cream 1 marlo applied topically 3 times a day , Not-Taking hydrOXYzine HCl 25 MG Tablet 1 tab(s) orally 4 times a day, prn , Not-Taking Acyclovir 5 % Cream 1 marlo applied topically every 3 hours , Not-Taking Medrol 4 MG Tablet Therapy Pack as directed orally daily , Not-Taking Saxenda 18 MG/3ML Solution Pen-injector as directed subcutaneously once a day , Discontinued Azithromycin 250 MG Tablet 2 tablets on the first day, then 1 tablet daily for 4 days orally once a day , Medication List reviewed and reconciled with the patient * Allergies: P enicillins, Amoxicillin. Objective: * Vitals: W t:203.6, Temp:98.2, BP:112/82, HR:79, Nurse:MARITZA, Ht: 71, BMI:28.39. * Examination: G eneral Examination: General Appearance: N AD. C hest: n ormal shape and expansion. H eart: R SR. L ungs: c lear to auscultation. S kin: left axilla with a small nodular area that is tender and mobile, no erythema, no drainage, small area of linear erythematous rash on the right upper thigh, pruritic. Assessment: * Assessment: 1. P oison galindo - L23.7 (Primary) 2 . A xillary lymphadenopathy - R59.0 S pecify :left Plan: * Treatment: 2. A xillary lymphadenopathy I maging: Ultrasound : Axilla, left (Performed Date - 01/11/2024) N ormal * Follow Up: v ia phone to report test results * Images: Billing Information: * Visit Code: 65577 Office Visit, Est Pt., Level 3. 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 Pt sts that she is concerned about it. Pt sts that it is a little sore but that could be because she keeps touching it Examination Category Sub-Category Detail Notes Category Not es General Examination Heart: RSR Lungs: clear to auscultatio n General Appearance: NAD Skin: left axilla with a s mall nodular area that is tender and mobile, no erythema, no drainage, small area of linear erythematous rash on the right upper thigh, pruritic Chest: normal shape and exp ansion
[2024-12-18 11:46] VITALS: BP 112/46; PULSE 77; RESP 18; TEMP 36.5; O2SAT 100; BMI 27.2
--- OUTSIDE RECORDS SUMMARY | 2024-12-18 11:48 | XMS_ITS | Patient Health Record ---
[facility] Address [address] [facility] [address] [place] [id number] Care Team Providers Care Youth Services Specialist Name Role Phone Suzan Stallings Primary Care Provider [phone] Min Marcus Unavailable [phone] Ayleen Martinez Unavailable [phone] Allergies Allergen (clinical drug ingredient) Drug/Non Drug [...] 11/24/2020 Administered xFlu shot- 6months-36 months of ajx-WUDL-FDPA-trivalent IM Intramuscular 05/03/2014 Administered xFlu shot- 6months-36 months of xod-CMDD-ZFDH-trivalent Unknown 04/13/2018 Administered xFlu shot-36 months and older IM Intramuscular 05/26/2007 Administered xFluzone (6mos and older)-trivalent IM Intramuscular 04/30/2013 Administered xFluzone Intradermal (18-64yrs)-trivalent ID Intradermal 02/23/2012 Administered xGardasil IM Intramuscular 09/08/2006 Administered xGardasil IM Intramuscular 11/04/2006 Administered xGardasil IM Intramuscular 03/11/2007 Administered Problems Problem Type SNOMED Code ICD Code Onset Dates Problem Status W/U Status Risk Notes Problem Depressive disorder (85772656) Depressive disorder (F32.9) Active confirmed Problem Panic disorder (339258581) Panic attacks (F41.0) Active confirmed Problem Upper respiratory infection (48390134) Upper respiratory tract infection, unspecified type (J06.9) Active confirmed Problem Acute sinusitis (27849329) Acute sinusitis, recurrence not specified, unspecified location (J01.90) Active confirmed Problem Migraine variant with headache (disorder) (799252637) Migraine headache (G43.909) Active confirmed Problem Anxiety depression (803459878) Anxiety with depression (F41.8) Active confirmed Problem Obesity (079550483) Non morbid obesity (E66.9) Active confirmed Vital Signs Heart Rate 79 /min 01/06/2024 Blood pressure diastolic 82 mm Hg 01/06/2024 Height 71 in 01/06/2024 Blood pressure systolic 112 mm Hg 01/06/2024 Weight 203.6 lbs 01/06/2024 BMI 28.39 kg/m2 01/06/2024 Encounters Encounter Location Date Provider Diagnosis [facility] [address] [place], [place] [phone] 01/06/2024 Ayleen Crowdy Poison galindo L23.7 and [...] Coverage Start Date Coverage End Date AETNA [facility] [id number] [place], [place] [id number] NABEEL MCFARLANE Self - [facility] the [facility] [id number] [place], [place] [id number] NABEEL MCFARLANE Self - patient is the insured Medications Administered Medication Instructions Date of Administration Dosage Notes celestone 03/22/2017 1.5 mL Dexamethasone 02/20/2020 1 mL Medical (General) History Surgical History Surgery Date(Month/Year) cholecystectomy 06/2009 appendectomy 06/2009
--- OUTSIDE RECORDS SUMMARY | 2024-12-18 11:48 | XMS_ITS | Data Portability ---
Author Organization [facility] telehealth Address [address] [place] [address] Assessment Encounter Date Assessment Date Assessment LastModified by Organization Details LastModified Time 11/26/2022 11/26/2022 37 y/o here today for annual exam. No VIRTUAL ASSIST[employer] complaint, but murry report she did have [...] None recorded. Lab estradiol, serum 2022 023 [facility] ([facility]), [address] [place] [address], [address], 03:45:35 dhea-sulfat e, serum 2022 023 [facility] ([facility]), [address] [place] [address], [address], 3 03:45:37 testosteron e, total, serum 2022 023 [facility] [place] [facility] ([facility]), [address] [place] [address], [address], 3 03:45:34 lh + FSH, serum 2022 023 [facility] [place] [facility] ([facility]), [address] [place] [address], [address], 3 03:45:32 vitamin D, 25-hydroxy, total, serum 2022 023 [facility] [place] [facility] ([facility]), [address] [place] [address], [address], 3 03:45:34 TSH, serum or plasma 2022 023 [email or web address] [facility] ([facility]), [address] [place] [address], [address], 3 17:04:04 vitamin B12, serum 2022 023 [facility] ([facility]), [address] [place] [address], [address], 3 03:45:35 pap, LB 2022 023 [email or web address] [facility] ([facility]), [address] [place] [address], [address], 3 13:35:54 pap, LB 2022 023 [email or web address] [facility] ([facility]), [address] [place], [address], 3 17:04:03 pap, LB 2022 023 [facility] ([facility]), [address] [place], [address], 3 03:44:10 fecal occult blood, stool 2022 023 HAIDER Tijerina MD, [address], [place], [address], 3 09:27:35 CBC w/ auto diff [address] [facility] ([facility]), [address] [place] [address], [address], 3 03:45:33 TSH, serum or plasma [address] [facility] ([facility]), [address] [place] [address], [address], 3 03:45:36 HbA1c (hemoglobin A1c), blood [address] [facility] ([facility]), [address] [place] [address], [address], 3 03:45:36 CMP, serum or plasma [address] [facility] ([facility]), [address] [place] [address], [address], 3 03:45:33 Referral None recorded. Procedures None recorded. Surgeries None recorded. Imaging None recorded. Medication Orders duloxetine 60 mg capsule,del ayed release 2022 023 [facility], [address] [place], [address], 3 15:13:51 sumatriptan 100 mg tablet 2022 023 [facility], [address] [place], [address], 3 15:13:57 Patient TargetsNo targets recorded. Patient [...] ded by Assoc iated Patho logis ts, [facility], d/b/a Sujatha charles, [address] [place] [address] Tello Her MD, Labor [employer] [facility]. Case revie wed and diagn osis rende red at [facility] iated Patho logis [employer] [facility], d/b/a [facility], [address] [facility] [address] [place] [address] Tello Her MD, Labor [facility]. CONFI DENTI AL Not Available [facility] [place] [facility] ([facility]) [address] [facility] [address], [place], [address], 11/29/2022 19:13:16 11/27/19 23 11/27/2022 HPV HIGH RISK SCREE N (TMA) HPV high risk NOT DETECT ED normal The human papil lomav irus (HPV) High Risk Scree n is an FDA-a pprov ed in-vi tro ampli fied nucle ic acid test for the quali tativ e detec tion of E6/E7 viral mRNA. [facility] emlvin sharma lated with patie nt prese ntati on, histo ry, cervi michael cytol ogy and other clini michael and labor atory findi ngs. See https ://Chunyu/s itflory/ anusha lt/fi les/2 018-0 3/AW- 08621 _002_ 01.pd f for alma gatesr sunil n. Test perfo rmed by [facility] iated Patho logis [employer] [facility], d/b/a Sujatha bai, [address] [facility] [address], [place] [address] , Shawna Chaudhry ra DO, Labor [employer] [facility] tor. Not Available [facility] [place] [facility] ([facility]) [address] [facility] [address], [place], [address], 11/29/2022 19:13:17 11/27/19 23 11/27/2022 FSH AND LH luteinizing hormone 1.50 mIU/m L LH Refer ence Range Men: 1.7 - 8.6 Women : Folli cular phase 2.4 - 12.6 Ovula tion phase 14.0 - 95.6 Lutea l phase 1.0 - 11.4 Postm enopa use 7.7 - 58.5 Not Available [facility] ([facility]) [address] [place] [address] [address], [place], [address], 12/01/2022 03:45:32 11/27/19 23 11/27/2022 FSH AND LH FSH 2.69 mIU/m L FSH Refer ence Range Men: 1.5 - 12.4 Women : Folli cular phase 3.5 - 12.5 Ovula tion phase 4.7 - 21.5 Lutea l phase 1.7 - 7.7 Postm enopa use 25.8 - 134.8 Not Available [facility] ([facility]) [address] [place] [address] Dr [address], [place], [address], 12/01/2022 03:45:32 11/27/19 23 11/27/2022 CBC WITH PLATE LET AND DIFFE RENTI AL WBC 6.2 K/uL 3.8-11 .5 Not Available [facility] ([facility]) [address] [place] [address] [address], [place], [address], 12/01/2022 03:45:33 11/27/19 23 11/27/2022 CBC WITH PLATE LET AND DIFFE RENTI AL red blood cell count (RBC) 4.40 M/mm3 3.60-5 .30 Not Available [facility] ([facility]) [address] [place] [address] [address], [place], [address], 12/01/2022 03:45:33 11/27/19 23 11/27/2022 CBC WITH PLATE LET AND DIFFE RENTI AL hemoglobin (HGB) 13.7 gm/dL 11.5-1 5.5 Not Available [facility] ([facility]) [address] [place] [address] [address], [place], [address], 12/01/2022 03:45:33 11/27/19 23 11/27/2022 CBC WITH PLATE LET AND DIFFE RENTI AL hematocrit (HCT) 40.9 % 35.2-4 6.4 Not Available [facility] [place] [facility] ([facility]) [address] [place] [address] [address], [place], [address], 12/01/2022 03:45:33 11/27/19 23 11/27/2022 CBC WITH PLATE LET AND DIFFE RENTI AL MCV 93.0 fL 79.0-9 9.0 Not Available [facility] [place] [facility] ([facility]) [address] [place] [address] [address], [place], [address], 12/01/2022 03:45:33 11/27/19 23 11/27/2022 CBC WITH PLATE LET AND DIFFE RENTI AL MCH 31.1 pg 26.9-3 5.0 Not Available [facility] ([facility]) [address] [place] [address] [address], [place], [address], 12/01/2022 03:45:33 11/27/19 23 11/27/2022 CBC WITH PLATE LET AND DIFFE RENTI AL MCHC 33.5 g/dL 30.4-3 4.8 Not Available [facility] ([facility]) [address] [place] [address] [address], [place], [address], 12/01/2022 03:45:33 11/27/19 23 11/27/2022 CBC WITH PLATE LET AND DIFFE RENTI AL RDW 43.6 fL 38.6-5 3.8 Not Available [facility] ([facility]) [address] [place] [address] [address], [place], [address], 12/01/2022 03:45:33 11/27/19 23 11/27/2022 CBC WITH PLATE LET AND DIFFE RENTI AL platelet count 177 K/cum m 137-39 7 Not Available [facility] [place] [facility] ([facility]) [address] [place] [address] [address], [place], [address], 12/01/2022 03:45:33 11/27/19 23 11/27/2022 CBC WITH PLATE LET AND DIFFE RENTI AL neutrophils automated 61.7 % 41.0-7 7.0 Not Available [facility] [place] [facility] ([facility]) [address] [place] [address] [address], [place], [address], 12/01/2022 03:45:33 11/27/19 23 11/27/2022 CBC WITH PLATE LET AND DIFFE RENTI AL lymphocytes automated 27.6 % 14.0-4 8.0 Not Available [facility] ([facility]) [address] [place] [address] [address], [place], [address], 12/01/2022 03:45:33 11/27/19 23 11/27/2022 CBC WITH PLATE LET AND DIFFE RENTI AL monocytes automated 8.7 % 4.0-13 .0 Not Available [facility] [place] [facility] ([facility]) [address] [place] [address] [address], [place], [address], 12/01/2022 03:45:33 11/27/19 23 11/27/2022 CBC WITH PLATE LET AND DIFFE RENTI AL eosinophils automated 1.0 % 0.0-8. 0 Not Available [facility] ([facility]) [address] [place] [address] [address], [place], [address], 12/01/2022 03:45:33 11/27/19 23 11/27/2022 CBC WITH PLATE LET AND DIFFE RENTI AL basophils automated 0.8 % 0.0-1. 5 Not Available [facility] ([facility]) [address] [place] [address] [address], [place], [address], 12/01/2022 03:45:33 11/27/19 23 11/27/2022 CBC WITH PLATE LET AND DIFFE SYDNIETI AL immature granulocyte automated 0.2 % 0.0-1. 0 Not Available [facility] [place] [facility] ([facility]) [address] [place] [address] [address], [place], [address], 12/01/2022 03:45:33 11/27/19 23 11/27/2022 COMPR EHENS JANKI METAB OLIC PANEL (CMP) sodium 140 mEq/L 135-14 5 Not Available [facility] [place] [facility] ([facility]) [address] [place] [address] [address], [place], [address], 12/01/2022 03:45:33 11/27/19 23 11/27/2022 COMPR EHENS JANKI METAB OLIC PANEL (CMP) potassium 4.3 mEq/L 3.5-5. 3 Not Available [facility] [place] [facility] ([facility]) [address] [place] [address] [address], [place], [address], 12/01/2022 03:45:33 11/27/19 23 11/27/2022 COMPR EHENS JANKI METAB OLIC PANEL (CMP) chloride 104 mEq/L 97-108 Not Available [facility] [place] [facility] ([facility]) [address] [place] [address] [address], [place], [address], 12/01/2022 03:45:33 11/27/19 23 11/27/2022 COMPR EHENS JANKI METAB OLIC PANEL (CMP) CO2 25 mEq/L 22-32 Not Available [facility] [place] [facility] ([facility]) [address] [place] [address] [address], [place], [address], 12/01/2022 03:45:33 11/27/19 23 11/27/2022 COMPR EHENS JANKI METAB OLIC PANEL (CMP) glucose 94 mg/dL 65-99 Not Available [facility] [place] [facility] ([facility]) [address] [place] [address] [address], [place], [address], 12/01/2022 03:45:33 11/27/19 23 11/27/2022 COMPR EHENS JANKI METAB OLIC PANEL (CMP) BUN 10 mg/dL 6-20 Not Available [facility] [place] [facility] ([facility]) [address] [place] [address] [address], [place], [address], 12/01/2022 03:45:33 11/27/19 23 11/27/2022 COMPR EHENS JANKI METAB OLIC PANEL (CMP) creatinine 0.79 mg/dL 0.50-1 .00 Not Available [facility] [place] [facility] ([facility]) [address] [place] [address] [address], [place], [address], 12/01/2022 03:45:33 11/27/19 23 11/27/2022 COMPR EHENS JANKI METAB OLIC PANEL (CMP) calcium 9.6 mg/dL 8.6-10 .4 Not Available [facility] [place] [facility] ([facility]) [address] [place] [address] [address], [place], [address], 12/01/2022 03:45:33 11/27/19 23 11/27/2022 COMPR EHENS JANKI METAB OLIC PANEL (CMP) protein 6.7 g/dL 6.0-8. 3 Not Available [facility] [place] [facility] ([facility]) [address] [place] [address] [address], [place], [address], 12/01/2022 03:45:33 11/27/19 23 11/27/2022 COMPR EHENS JANKI METAB OLIC PANEL (CMP) albumin 4.5 g/dL 3.5-5. 3 Not Available [facility] [place] [facility] ([facility]) [address] [place] [address] [address], [place], [address], 12/01/2022 03:45:33 11/27/19 23 11/27/2022 COMPR EHENS JANKI METAB OLIC PANEL (CMP) alkaline phosphatase 80 IU/L 35-121 Not Available [facility] [place] [facility] ([facility]) [address] [place] [address] [address], [place], [address], 12/01/2022 03:45:33 11/27/19 23 11/27/2022 COMPR EHENS JANKI METAB OLIC PANEL (CMP) ALT (SGPT) 12 IU/L <5-47 Not Available [facility] ([facility]) [address] [place] [address] [address], [place], [address], 12/01/2022 03:45:33 11/27/19 23 11/27/2022 COMPR EHENS JANKI METAB OLIC PANEL (CMP) AST (SGOT) 15 IU/L <5-40 Not Available [facility] ([facility]) [address] [place] [address] [address], [place], [address], 12/01/2022 03:45:33 11/27/19 23 11/27/2022 COMPR EHENS JANKI METAB OLIC PANEL (CMP) bilirubin, total 0.3 mg/dL <0.2-1 .2 Not Available [facility] [place] [facility] ([facility]) [address] [place] [address] [address], [place], [address], 12/01/2022 03:45:33 11/27/19 23 11/27/2022 COMPR EHENS JANKI METAB OLIC PANEL (CMP) A/G ratio 2.0 mg/dL 1.1-2. 5 Not Available [facility] ([facility]) [address] [place] [address] [address], [place], [address], 12/01/2022 03:45:33 11/27/19 23 11/27/2022 COMPR EHENS JANKI METAB OLIC PANEL (CMP) estimated GFR (black) 110 mL/mi n/1.7 3m2 >59 Not Available [facility] [place] [facility] ([facility]) [address] [place] [address] [address], [place], [address], 12/01/2022 03:45:33 11/27/19 23 11/27/2022 COMPR EHENS [...] -[facility] ([facility]) [address] [facility] [address], [place], [address], 12/01/2022 03:45:33 11/27/1911/27/2022 VITAM IN D 25-HY [...] -[facility] ([facility]) [address] [facility] [address], [place], [address], 12/01/2022 03:45:34 11/27/1911/27/2022 TESTO STERO NE TOTAL testosterone total SEE BELOW NG/dL 8.00-4 8.00 The resul t is outsi de of the repor table range for this metho dolog y. Pleas e refer to Testo stero ne , Total by LC/MS for the resul t. Not Available [facility] [place] [facility] ([facility]) [address] [place] [address] [address], [place], [address], 12/01/2022 03:45:34 11/27/1912/01/2022 TESTO STERO NE, TOTAL [...] ional or for resea rch. Not Available [facility] [place] [facility] ([facility]) [address] [place] [address] [address], [place], [address], 12/01/2022 03:45:35 11/27/19 23 11/27/2022 ESTRA DIOL estradiol 67 pg/mL Estra diol Refer ence Range Healt hy women Folli cular phase 12.4 - 233 Ovula tion phase 41.0 - 398 Lutea l phase 22.3 - 341 Postm enopa use <5 - 138 Healt hy pregn ant women 1st trime ster 154 - 3243 2nd trime ster 1561 - 17277 3rd trime ster 8525 - >3000 0 Not Available [facility] ([facility]) [address] [facility] [address], [place], [address], 12/01/2022 03:45:35 11/27/19 23 11/27/2022 VITAM IN B12 vitamin B12 343 pg/mL 232-12 45 Not Available [facility] ([facility]) [address] [facility] [address], [place], [address], 12/01/2022 03:45:35 11/27/19 23 11/27/2022 HEMOG LOBIN [...] ic <5.7% Non-D iabet ic Not Available [facility] ([facility]) [address] [facility] [address], [place], [address], 12/01/2022 03:45:36 11/27/19 23 11/27/2022 HEMOG LOBIN A1C estimated average glucose 105 mg/dL [place] ge Gluco se is calcu lated using the equat ion AG = (28.7 x HgbA1 c) - 46.7 based on the guide lines estab lishe d by the ADA. Not Available [facility] ([facility]) [address] [facility] [address], [place], [address], 12/01/2022 03:45:36 11/27/19 23 11/27/2022 TSH TSH 1.70 mU/L 0.43-5 .25 Not Available [facility] ([facility]) [address] [facility] [address], [place], [address], 12/01/2022 03:45:36 11/27/19 23 11/27/2022 DHEA- SULFA TE DHEA-sulfate 64 ug/dL 61-337 Not Available [facility] ([facility]) [address] [facility] [facility] [address], [place], [address], 12/01/2022 03:45:37 Result Notes None recorded. Problems Name Problem SNOMED Code Status Onset Date Resolution Date Notes Provider Name and Address Organization Details Recorded Time Mixed anxiety and depressive disorder 775204418 Active 023 PABLO Coronel [address], [place], [address], [facility] 3 14:09:03 Migraine 10341387 Active 023 PABLO Coronel [address], [place], [address], [facility] 3 14:13:07 Fatigue 95181677 Active [address], [place], [address], [facility] 3 14:30:54 [...] n hives Not available Not available 11/26/2022 42485 8001 SNOMED Rosy fajardo, HEATHER - ELOY [...] Updated DateTime 11/26/2022 180.34 cm 33.8 kg/m2 373645.5 1 g 110 mm[Hg] 80 mm[Hg] [facility] 13:49:24 Social History Question Answer Notes LastModified by Organizat [place] Details LastModified Time Tobacco Smoking Status Never Smoker [facility] 11/26/2022 13:33:49 Do You Use Protection During Sex? No Information not available 11/26/2022 What Is Your Relationship Status? [email or web address] Information not available 11/26/2022 Are You Sexually Active? Yes [email or web address] Information not available 11/26/2022 Sex: Female Functional Status Question Answer Note LastModified by Organizat ion Details LastModified Time Do you use any illicit or recreational drugs? No Information not available 11/26/2022 Do you or have you ever used any other forms of tobacco or nicotine? No [email or web address] Information not available 11/26/2022 What is your level of alcohol consumption? Occasional [email or web address] Information not available 11/26/2022 Mental Status None recorded. Family History Relationship Description Onset Age of this Age Resolved Age Notes LastModified by Organization Details LastModified Time Father No current problems or disability [email or web address] Not available 11/26 13:31:15 Mother No current problems or disability [email or web address] Not available 11/26 13:31:15 Mother Diabetes mellitus Moms whole family [email or web address] Not available 11/26/2022 13:32:10 Medical History No [...] SNOMED-CT Code Diagnosis ICD10 Code Diagnosis Note [id number] PABLO Coronel MD [address] [place] [address] 11/26/2022 13:33:37 11/30/2022 15:52:46 Routine gynecologic examination done 1154151678 9101 Z01.419 Mixed anxi ety and depressive disorder 333819290 F41.8 Migraine 69325651 G43.90 9 Fatigue 75478538 R53.83 Hormone re placement therapy 006154770 Z79.890 Gynecologi michael examination abnormal [id number] 30399 Z01.411 90126 PABLO Landry MD [address] [place] [address] 12/06/2022 11:50:43 12/06/2022 15:29:12 Health Concerns Section Related Observation LastModified by Organization Detai ls LastModified Time None Recorded Concern Status LastModified by Organization Details LastModified Time None Recorded Advance Directives Directive None Recorded Payers Insurance Date Sequence Insurance Name Policy Number Policy Vargas Covered Member ID Vargas Member ID Guarantor Name 02/13/2024 1 [employer] (POS) [id number] Juanita John [id number] OBGyn Episode No OBEpisode recorded.
[2024-12-18 12:02] VITALS: BP 114/65; PULSE 74; O2SAT 98
[2024-12-18] MEDS: LIDOCAINE 2% UROJET 10ML TP (12:02)
[2024-12-18] MEDS: COCAINE 4% TOPICAL SOLN 4ML BOTTLE 1 ML TP (12:02)
--- NOTE | 2024-12-18 12:02 | ED_ITS ---
<Statement entered by Suzan Pineda MD - 12/18/24 16:01> I was consulted by the ANNA, and we discussed the complexity of the problems being addressed. I approved the treatment and management plan for this patient's care in the emergency department, thus performing a substantive portion of the medical decision making. Suzan Pineda MD, DANYELL, FACEP Discharge Plan Disposition Patient Disposition: Home, Self-Care Prescriptions Prescriptions: New doxycycline hyclate 100 mg capsule 100 mg PO BID 7 Days Qty: 14 0RF No Action lamotrigine [Lamictal] 25 mg tablet 25 mg PO DAILY Qty: 42 0RF Rx Instructions: Take 1 tablet daily for 2 weeks, then increase to 2 tablets daily. If you develop a rash or itching, please stop the medication and call the clinic. propranolol 10 mg tablet 10 mg PO BID PRN (Reason: anxiety) Qty: 30 2RF sumatriptan succinate 50 mg tablet PO doxycycline hyclate 100 mg tablet 100 mg PO DAILY Qty: 20 0RF hclgslunczrueaq-maiprqflw-DZ [Bromfed DM] 2-30-10 mg/5 mL syrup 5 ml PO Q4-6H PRN (Reason: cold symptoms) Qty: 118 0RF duloxetine 60 mg capsule,delayed release(DR/EC) 60 mg PO DAILY Qty: 90 2RF Referrals Follow up/Referrals: Scar Stallings MD [Primary Care Provider, Medical] - See instructions Activity Restrictions/Add. Instructions Additional Instructions/Restrictions: Keep area clean and dry. Have sutures removed in 7 days. Apply ice to area. Clinical Impressions Clinical Impression: Laceration Instructions Patient Instructions: DI for Laceration Repair Print Language Print Language: Kyrgyz Discharge ED Provider: Suzan Pineda General Adult HPI General Chief complaint: Wound/Laceration Stated complaint: Stitches above r eye Time Seen by Provider: 12/18/24 11:43 Mode of Arrival: Ambulatory Description of Symptoms (Recalled from ER Triage Doc. by RN): dog scratch to r eyelid History of Present Illness HPI narrative: 39-year-old female presents to the ED today after a dog scratch to her right eyelid. She does have a small laceration to that right eyelid. She states that she just was not paying attention and the dog scratched her eyelid. Related Data Home Medications ?Medication ?Instructions ?Recorded ?Confirmed sumatriptan succinate 50 mg tablet mg PO 11/07/2410/19 Previous Rx's ?Medication ?Instructions ?Recorded duloxetine 60 mg capsule,delayed 60 mg PO DAILY #90 ca ps 04/27/24 release lamotrigine 25 mg tablet (Lamictal) 25 mg PO DAILY #42 tabs 09/05/24 propranolol 10 mg tablet 10 mg PO BID PRN anxiety #30 tabs 09/05/24 pdulqsgpgvzocrn-qwwnhunhwbzetrt-IF 5 ml PO Q4-6H PRN c old symptoms 11/07/24 2 mg-30 mg-10 mg/5 mL oral syrup #118 mL (Bromfed DM) doxycycline hyclate 100 mg tablet 100 mg PO DAILY #20 tabs 11/07/24 doxycycline hyclate 100 mg capsule 100 mg PO BID 7 day s #14 caps 12/18/24 Allergies Allergy/AdvReac Type Severity Reaction Status Date / Time penicillin G (PENICILLIN G) Allergy Intermediate I-HIVES Verified 11/07/24 08:27 cephalexin (CEPHALEXIN) Allergy Unknown I-HIVES Verified 11/07/24 08:27 [facility] Disclaimer: The information contained in this section may have been updated after the patient was seen, as this information can be updated by other users. Medical History Posttraumatic stress disorder Attention deficit disorder (ADD) in adult Surgical History No significant past surgical history Family History Other No significant family history Social History Smoking Status: Never smoker alcohol intake: current alcohol intake frequency: holidays/special occasions only substance use type: denies use current occupational status: employed Travel in the last 8 weeks?: None household members: family Have you lived/traveled outside [place] in past 30 days?: No Contact w/someone who lives/traveled outside [place] past 30 days?: No Exposure to someone with infectious disease in past 14 days?: No Do you have a fever (greater than 100.4 F or 38 C)?: No Have you tested positive for COVID-19?: No Exposed to someone with COVID-19 in past 14 days?: No Do you have a sore throat?: No Do you have a cough?: No Do you have any weakness?: No Do you have any diarrhea?: No Are you experiencing any unusual bleeding?: No Do you have any muscle aches/pain?: No Do you have any abdominal pain?: No Are you experiencing loss of taste or smell?: No Other Medical History Have you received the Flu Vaccine for this season: No Have you received the Pneumonia Vaccine: No ROS Obtained: Yes Systems reviewed as appropriate & no additional complaints except as documented Constitutional Constitutional: Reports as per HPI Physical Exam General General appearance: alert and in no apparent distress Head Head exam: normocephalic Eye Eye exam: Present PERRL, EOMI and other (right eyelid laceration) ENT ENT exam: Present normal oropharynx and mucous membranes moist Neck Neck exam: Present full ROM and trachea midline Respiratory Respiratory exam: Present normal lung sounds bilaterally Cardiovascular Cardiovascular exam: Present normal rhythm, normal heart sounds, +S1 and +S2 Extremities Exam Extremities exam: Present full ROM and normal capillary refill Neurological Exam Neurological exam: Present alert and oriented X3 Skin Skin exam: Present warm, dry and other (laceration to right eyelid) Medical Decision Making Medical Records Screening: Per USPSTF and CDC recommendations, given the prevalence of disease in our region, it is our hospital?s policy to screen for HIV and viral Hepatitis for all patients aged 18 and over and those with ongoing risk factors. Agustin Inquiry Pt receiving controlled substance: No Agustin was queried for this patient: No Vital Signs: 12/18/24 11:46 12/18/24 12:02 Temperature 97.7 F Temperature Source Oral Pulse Rate 74 Pulse Rate [Right Brachial] 77 Respiratory Rate 18 Blood Pressure 114/65 Blood Pressure [Right Arm] 112/46 L Blood Pressure Mean 78 Blood Pressure Mean [Right Arm] 68 Blood Pressure Source [Right Arm] Automatic Cuff Blood Pressure Position [Right Arm] Sitting 02 Sat by Pulse Oximetry 100 98 Oxygen Delivery Method Room Air Orders (Tests/Meds): ED MEDICATIONS Discontinued Medications Generic Name Dose Route Start Last Admin Trade Name Freq PRN Reason Stop Dose Admin Cocaine HCl 1 ml 12/18/24 11:57 12/18/24 12:02 Cocaine 4% Topical Soln 4ml Bottle TP 12/18/24 11:58 1 ml ONCE ONE Administration Epinephrine HCl 1 mg 12/18/24 11:57 12/18/24 12:03 Epinephrine 1 Mg/Ml Ampul TP 12/18/24 11:58 1 mg ONCE ONE Administration Lidocaine HCl 1 ml 12/18/24 11:57 12/18/24 12:02 Lidocaine 2% Urojet 10ml TP 12/18/24 11:58 1 ml ONCE ONE Administration Tetanus/Reduced Diphtheria/Acell Pertussis 0.5 ml 12/18/24 12:14 12/18/24 12:24 Tet/Diphth/Pert-Adult 0.5ml Syringe IM 12/18/24 12:15 Not Given .ONCE ONE ORDERS Category Date Time Status HIV Combo Routine Lab 12/18/24 11:50 Ordered Medical Decision Narrative: patient is a 39-year-old female presenting to the emergency department for evaluation of eyelid laceration. Patient is hemodynamically stable and nontoxic-appearing upon arrival, afebrile. Differential diagnosis includes laceration. No workup needed today patient's dog scratched her right eyelid. This is very superficial. I had Dr. Pineda look at it to verify. Will please see procedure note for lack repair. Patient is safe for discharge home on antibiotics. Patient was up-to-date on tetanus. Procedures Laceration Laceration 1: Site: face Size (cm): 2.5 Description: linear Depth: simple, single layer Local Anesthetic: other anesthetic Pre-repair: wound explored Skin layer closed with: nylon Size (cm): 6-0 Number of sutures: 2 Technique: simple, interrupted Critical Care Critical Care Time Critical Care Time: No
[2024-12-18 12:58] VITALS: BP 95/72; PULSE 74; RESP 18; TEMP 36.7; O2SAT 98
== END 2024-12-18 12:59 | disposition home or self-care (01) ==
PROVIDERS: Emergency Provider Student in an Organized Health Care Education/Training Program; PCP Family Medicine
DX: S01.111A Laceration without foreign body of right eyelid and periocular area, initial encounter (principal); W54.8XXA Other contact with dog, initial encounter
CPT/HCPCS: 12011; 99283; J0171